=== PATIENT | male | born 1930 | race Caucasian/White ===

== ENCOUNTER 2018-04-30 05:44 | Day surgery (SDC) | payer OTHER ==
[~2018-04-30] VITALS: Ht 167.6 cm; Wt 59.4 kg
--- NOTE | ~2018-04-30 | PATH ---
[facility] [address] [place] [address] PATHOLOGY RPT PROCEDURE Name: DELPHINE AMADOR Room #: DEP [facility] M.Maycol.#: [id number] Admission: 04/30/18 Date of : 32 Discharge: 04/30/18 Report #: [id number] Path Case #: [id number] LCA Accession Number: [id number] . 01 Material submitted: . RIGHT TEMPORAL ARTERY BIOPSY STITCH PALMA PROXIMAL END . 01 Clinical history: . Vision loss . 02 Diagnosis: Artery, right temporal artery, biopsy: - Mild chronic inflammation with focal vessel wall destruction present. - Mild atherosclerosis with intimal hypertrophy. - No giant cells present. [facility]/05/03/2018 . 02 Comment: The provided history of vision loss is noted. Examination shows focal mild chronic inflammation predominantly comprised of lymphocytes and an occasional plasma cell identified within the artery wall. There are no giant cells identified. There is focal destruction of the vessel wall identified. Findings may be suggestive of arteritis. Clinical correlation is required. The case is discussed with Dr. Plummer at 11:45 AM on 05/03/18. . Co-review: Dr. Deja Morin. (IUV:pit; 05/03/2018) . 02 Electronically signed: . Shyanne Kee MD, Pathologist NPI- [id number] . 01 Gross description: . The specimen is received in formalin, labeled "Delphine Amador, right temporal artery biopsy, stitch palma proximal end". Received is a segment of pale box vascular tissue measuring 6.2 cm in length by 0.4 cm in diameter with a suture marking the proximal aspect. The slight amount of blue ink is placed at the proximal margin and the suture is removed. The proximal half is submitted in cassette A1 and the distal half is submitted in cassette A2. (CAA; 04/30/2018) QA/QA . 02 CPT . 161503 Performed at: [address] [place] [address] PATHOLOGY RPT PROCEDURE Name: DELPHINE AMADOR [facility] [id number] Admission: 04/30/18 Date of : 32 Discharge: 04/30/18 Report #: [id number] Path Case #: [id number] [address] [facility] [address], [place], [place] [id number] MD Hill Amato MD Phone: [phone] Performed at: [address] [id number] MD Shyanne Kee MD Phone: [phone]
--- NOTE | ~2018-04-30 | O ---
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 Rule out temporal arteritis. 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 Rule out temporal arteritis. PROCEDURES PERFORMED: Right temporal artery biopsy. COMPLICATIONS: None. ANESTHETIC: Local 0.25% Marcaine mixed with 1% lidocaine with epinephrine. SURGEON: Heriberto Plummer M.D. ESTIMATED BLOOD LOSS: 2 mL. PROCEDURE NOTE: With the patient in the supine position, the right temporal artery was identified and marked. The proximal part was palpated very easily. The right forehead was then prepped and draped in sterile fashion. Towels were placed around the patient, and a drape was placed over his face making a tent. Local anesthetic was placed. This was injected with 30-gauge needle. A small 2 cm incision was made. This was then used to dissect and find the artery. The artery was found without difficulty. The artery was then traced distally. Further local anesthetic was placed as I followed it up. The incision was enlarged to about 5 cm. The artery does take a slight anterior course towards the end. I followed it to where it branched. At the mid part of the artery, hemostat was placed underneath and then a vessel loop was then passed under the artery. The artery was then dissected from the surrounding tissue laterally and posteriorly. There does seem to be increased fibrosis in this area. Small branches to the artery were clipped and divided. The dissection was carried out to the anterior branch where it bifurcated at the distal part. A portion of the distal artery was harvested also. A medium clip was placed on the end of the main artery. The artery was then dissected proximally. Once the proximal part was dissected, two medium clips were placed proximally. The artery was then freed and a suture was placed on the proximal margin. The artery was then sent to the pathology in formalin. The patient tolerated procedure well. Hemostasis obtained. The subcutaneous tissue was closed with 4-0 PDS in running fashion. [address] [address] OPERATIVE REPORT Name: ADARSHSAVAGEDELPHINE W [facility]: [facility] [id number] Admission: 04/30/18 Attend Phys: Heriberto Plummer MD Discharge: 04/30/18 Date of : 32 Report #: [id number] The skin was then closed with 5-0 PDS in running fashion. The patient tolerated the procedure well. <ELECTRONICALLY SIGNED> By: Heriberto Plummer MD 05/09/18 1105 1145 1214 Heriberto Plummer MD /jacquelin
[~2018-04-30 05:44] MED LIST: APAP650 PO; CALCIUM 500 +1 EAC5 PO; OCUVITE TABLET1 EAC1 PO; PREDNISONE 20 M20 MG PO; VITAMIN B-12500 MCG PO; VITAMIN D31000 UNIT PO
[2018-04-30 08:15] VITALS: BP 156/76
[2018-04-30 11:21] VITALS: BP 156/76
== END 2018-04-30 11:00 | disposition home or self-care (01) ==
LOC: OR 05:44 → TBA 05:45 → OR 11:00
DX: M31.6 Other giant cell arteritis (principal); I70.8 Atherosclerosis of other arteries; Z87.891 Personal history of nicotine dependence; Z85.01 Personal history of malignant neoplasm of esophagus; Z79.82 Long term (current) use of aspirin; Z79.899 Other long term (current) drug therapy; Z86.12 Personal history of poliomyelitis
CPT/HCPCS: 50010; 50101; 51301; 54118; 56525; 56526

== ENCOUNTER 2018-05-03 13:00 | Inpatient (IN) | payer OTHER ==
[~2018-05-03] VITALS: Ht 167.6 cm; Wt 61.6 kg
--- NOTE | ~2018-05-03 | EKG ---
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 : 1930 Requested By: Romeo Rainey Order Number: [id number] MD: Timur Figueroa Measurements Intervals [place] Rate: 53 P: -39 GA: 147 QRS: 26 QRSD: 104 T: -8 QT: 437 QTc: 411 Interpretive Statements Sinus bradycardia Probable left atrial enlargement Lateral infarct, acute (LAD) Compared to ECG 10/17/1994 07:57:00 lateral injury pattern is now present Electronically Signed On 05-04-2018 15:42:20 CDT by Timur Figueroa [email or web address] <ELECTRONICALLY SIGNED> By: Timur Figueroa MD, [facility] 05/04/18 1542 1302 130 Timur Figueroa MD, [facility] /EPI
--- NOTE | ~2018-05-03 | EKG ---
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 : 1930 Requested By: Luiz Dyer Order Number: [id number] MD: Unruly Farnsworth Measurements Intervals [place] Rate: 54 P: -26 TN: 111 QRS: 28 QRSD: 106 T: -6 QT: 428 QTc: 406 Interpretive Statements Sinus rhythm Ventricular premature complex Borderline short TN interval Probable left atrial enlargement Lateral infarct, acute (LAD) Compared to ECG 10/17/1994 07:57:00 Ventricular premature complex(es) now present Myocardial infarct finding now present Electronically Signed On 05-04-2018 14:25:57 CDT by Unruly Farnsworth [email or web address] <ELECTRONICALLY SIGNED> By: Unruly Farnsworth MD 05/04/18 1425 1313 1313 Unruly Farnsworth MD /EPI
--- NOTE | ~2018-05-03 | EKG ---
[address] [place] [address] ELECTROCARDIOGRAM REPORT Name: DELPHINE AL Room #: 203-P ADM IN M.R.#: [id number] Admission: 05/03/18 Attend Phys: Alex Damon MD Discharge: Date of : 32 Report #: [id number] THIS REPORT FOR: //name// [facility] Test Date: 2018-05-04 Test Time: 06:25:10 Pat Name: DELPHINE AL Department: Room: 203 P Gender: M Skip Tender: LOULOU : 1930 Requested By: Luiz Dyer Order Number: [id number] MD: Timur Figueroa Measurements Intervals [place] Rate: 46 P: 57 MA: 156 QRS: 81 QRSD: 106 T: 71 QT: 460 QTc: 403 Interpretive Statements Sinus bradycardia Probable anteroseptal infarct, old Baseline wander in lead(s) V3 Compared to ECG 10/17/1994 07:57:00 PVCs are no longer present Electronically Signed On 05-04-2018 15:51:49 CDT by Timur Figueroa [email or web address] <ELECTRONICALLY SIGNED> By: Timur Figueroa MD, [facility] 05/04/18 1551 Timur Figueroa MD, [facility] /EPI
--- NOTE | ~2018-05-03 | CATHLAB ---
[facility] [address] [place] [address] INVASIVE PROCEDURE REPORT Name: DELPHINE AL Room #: 203-P [facility].#: [id number] Admission: 05/03/18 Attend Phys: Alex Damon MD Discharge: Date of : 32 Date of Service: 05/03/18 1631 Report #: [id number] THIS REPORT FOR: //name// APPROVED REPORT Study performed: 05/03/2018 13:23:40 Patient Details Patient Status: In-Patient Room #: The patient is a 87 year-old male Event Personnel Luiz Dyer Wire Mill Operator, Elvia Singh Monitor, Gila Tobin RTR, Roxane Carty Wes RN, Carloz Weems RN air force senior officer Performed Art Access - R femoral artery* Left Heart Cath w/or w/o Coronaries [id number] [facility] BMS Revasc AMI Total/Sub Single DIAG [id number] BMREVAMISG Hemostasis w/ Mynx Indication STEMI (>12 hrs to = 24 hrs), Dyspnea, Chest pain Risk Factors Hypercholesterolemia Procedure Narrative The patient was brought emergently to the Cardiac Catheterization Laboratory and was prepped and draped in a sterile manner. The Right Groin^ was infiltrated with 1% Lidocaine subcutaneous anesthesia. A PINNACLE 6FR Sheath #[id number] sheath was inserted into the RFA^. Coronary angiography was performed using coronary diagnostic catheters. The right coronary system was accessed and visualized with a JR 4 catheter. The left coronary system was accessed and visualized with a JL 4 catheter. The left ventricle was accessed and visualized with a Pigtail catheter. Left ventricular/Aortic Valve gradient assessed via catheter pullback. Left ventriculogram was performed in BLANKENSHIP projection. Pre-demployment femoral angiogram was performed . Closure device was deployed with a 6 Fr Mynx. The patient tolerated the procedure well and there were no complications associated with the procedure. There was no hematoma. Fluoro Time: 12.38 minutes Dose: DAP 7821.20 cGycm2 [address] [address] INVASIVE PROCEDURE REPORT Name: DELPHINE AL Room #: 203-P [facility]#: [id number] Admission: 05/03/18 Attend Phys: Alex Damon MD Discharge: Date of : 32 Date of Service: 05/03/18 1631 Report #: [id number] Contrast Type and Amount: Visipaque 200 ml Coronary Angiography The patient's coronary anatomy is right dominant. Diagnostic Cath Left Main Patent vessel, with no flow-limiting lesions. LAD The proximal segment is a patent vessel. There is moderate to severe diffuse disease in the mid/distal segment, 60%, recommend medical therapy. Diagonal 1 Occluded at the proximal segment. Circumflex Supplies one moderate size OM vessel. OM1 Divides into 2 branches. The superior branch has a moderate stenosis in the mid segment, 50%. Right Coronary Dominant vessel with mild disease in the mid segment, 30%. R PDA Patent vessel, no flow-limiting lesions. RPLV Patent vessel, with no flow-limiting lesions. Left Ventriculography The left ventricle is normal in size with decreased contractility. The left ventricular ejection fraction is estimated to be 40%. Left ventricular wall motion abnormalities are present. There is hypokinesis of the anterolateral and apical segments. Hemodynamics The aortic pressure is 182/66 mmHg with a mean of 114 mmHg. The left ventricular pressure is 173/6 mmHg with a mean of mmHg. The left ventricular end diastolic pressure is 43 mmHg. PCI Technique Lesion Anticoagulation was achieved with Angiomax. Patient was preloaded with Brillinta. Percutaneous coronary intervention was performed on the first diagnonal branch segment. The lesion stenosis prior to intervention was 100% with MONSTER 1 flow. A LAUNCHER 6FR EBU 3.5 #[id number] Guide Catheter was used to engage the ostium. A Luge Wire .014 x 182CM #[id number] Interventional Guidewire was used to cross the lesion. BALLOON DILATION A Balloon catheter Euphora RX 2.0 x12 #[id number] was inserted and inflated up to 8.00atm for 21seconds. Additional Inflation: 8.00atm for 23seconds. STENT DEPLOYMENT [facility] [address] [place] [address] INVASIVE PROCEDURE REPORT Name: DELPHINE AL Room #: 203-P [facility] IN M.R.#: [id number] Admission: 05/03/18 Attend Phys: Alex Damon MD Discharge: Date of : 32 Date of Service: 05/03/18 1631 Report #: [id number] A bare metal stent INTEGRITY RX 2.25 X 14 #[id number] was inserted and inflated up to 12.00atm for 15seconds. Final angiography reveals 0 % stenosis with MONSTER 3 flow. Conclusion 1. Successful insertion of a bare metal stent into the total occlusion in the first diagonal artery, with confucianism of MONSTER-3 blood flow. 2. Moderately severe diffuse disease in the mid/distal segment of the LAD, recommend medical therapy. 3. Moderate disease in the mid segment of OM1. 4. Moderate segmental LV dysfunction. 5. Recommend dual antiplatelet therapy. <ELECTRONICALLY SIGNED> By: Luiz Dyer MD 05/03/18 163 30 30 Luiz Dyer MD /INF
--- NOTE | ~2018-05-03 | 2DMMODE ---
[facility] [address] [place] [address] 2 D/M-MODE ECHOCARDIOGRAM Name: DELPHINE AL Room #: 203-P [facility] IN ..#: [id number] Admission: 05/03/18 Attend Phys: Alex Damon MD Discharge: Date of : 32 Date of Service: 05/04/18 1717 Report #: [id number] THIS REPORT FOR: //name// APPROVED REPORT Study performed: 05/04/2018 11:29:03 EXAM: Comprehensive 2D, Doppler, and color-flow Echocardiogram Patient Location: Bedside Room #: 203 Status: routine BSA: 1.72 HR: 48 bpm BP: 147/70 mmHg Rhythm: Bradycardia Other Information Study Quality: Adequate Indications MD status post PCI. 2D Dimensions RVDd: 39.34 mm LVEF(%): 76.03 (>50%) IVSd: 10.27 (7-11mm) LVOT Diam: 19.61 (18-24mm) LVDd: 45.72 mm PWd: 10.27 (7-11mm) Ascending Ao: 39.72 (22-36mm) LVDs: 25.30 (25-40mm) Aortic Root: 31.86 mm Callahan's LVEF: 76.03 % Volumes Left Atrial Volume (Systole) Single Plane 4CH: 49.94 mL Single Plane 2CH: 58.48 mL LA ESV Index: 35.00 mL/m2 Aortic Valve AoV Peak Josiah.: 1.52 m/s AO Peak Gr.: 9.21 mmHg LVOT Max P.17 mmHg LVOT Max V: 1.02 m/s MINH Vmax: 2.03 cm2 Mitral Valve E/A Ratio: 1.8 MV Decel. Time: 167.76 ms [facility] [place] [address] 2 D/M-MODE ECHOCARDIOGRAM Name: DELPHINE AL Room #: 203-[facility] IN .R.#: [id number] Admission: 05/03/18 Attend Phys: Alex Damon MD Discharge: Date of : 32 Date of Service: 05/04/18 1717 Report #: [id number] MV E Max Josiah.: 0.86 m/s MV A Josiah.: 0.49 m/s MV PHT: 48.65 ms IVRT: 110.73 ms Pulmonary Valve PV Peak Josiah.: 0.91 m/s PV Peak Gr.: 3.29 mmHg Pulmonary Vein P Vein S: 0.58 m/s P Vein A: 0.26 m/s P Vein D: 0.62 m/s P Vein A Dur.: 115.3 msec P Vein S/D Ratio: 0.94 Tricuspid Valve TR Peak Josiah.: 2.68 m/s RAP Estimate: 5.00 mmHg TR Peak Gr.: 28.81 mmHg PA Pressure: 34.00 mmHg Left Ventricle The left ventricle is normal size. Hypokinesis of the apical septum. There is normal left ventricular wall thickness. Left ventricular systolic function is mildly decreased. LVEF is 45%. Moderate diastolic dysfunction is present (pseudonormal filling). Right Ventricle The right ventricle is normal size. The right ventricular systolic function is normal. Atria Left atrium is mildly dilated. The right atrium size is normal. Aortic Valve The Aortic valve is sclerotic. Mild to moderate aortic regurgitation. There is no aortic valvular stenosis. Mitral Valve Mitral valve leaflets are mildly thickened. Mild mitral regurgitation. Tricuspid Valve The tricuspid valve is normal in structure. Mild to moderate tricuspid regurgitation. Estimated PAP is 35mmHg. Pulmonic Valve The pulmonary valve is normal in structure. Mild pulmonic [address] [address] 2 D/M-MODE ECHOCARDIOGRAM Name: DELPHINE AL Room #: 203-P [facility] IN ..#: [id number] Admission: 05/03/18 Attend Phys: Alex Damon MD Discharge: Date of : 32 Date of Service: 05/04/18 1037 Report #: [id number] regurgitation. Great Vessels The aortic root is normal in size. 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 IVC is normal in size and collapses >50% with inspiration. Pericardium There is no pericardial effusion. <Conclusion> The left ventricle is normal size. Left ventricular systolic function is mildly decreased. Moderate diastolic dysfunction is present (pseudonormal filling). The right ventricle is normal size. Left atrium is mildly dilated. Mild to moderate aortic regurgitation. Mild mitral regurgitation. Mild to moderate tricuspid regurgitation. Estimated PAP is 35mmHg. <ELECTRONICALLY SIGNED> By: Luiz Dyer MD 05/04/181716 16 16 Luiz Dyer MD /INF
--- NOTE | ~2018-05-03 | HC ---
[facility] [place] [address] CONSULTATION Name: ADARSHSAVAGEDELPHINE W Room #: 203-P [facility] IN M.R.#: [id number] Admission: 05/03/18 Attend Phys: Alex Damon MD Discharge: Date of : 32 Report #: [id number] THIS REPORT FOR: //name// CC: Adin Damon DATE OF SERVICE: 05/03/2018 INDICATION: Chest pain. HISTORY OF PRESENT ILLNESS: This is an 87-year-old gentleman presenting with substernal chest pain, nonradiating. It started around 3:00 a.m. this morning, associated with shortness of breath and diaphoresis. It had a staggering presentation. He spoke to his video control operator who referred the patient to the ER. The ECG reveals ST segment elevation in leads I and aVL. The patient had 1 episode of nausea with vomiting. There is no history of fever, cough, diarrhea or orthopnea. PAST MEDICAL HISTORY: Negative for VT. No history of hypertension or diabetes. History of bradycardia. Recently, I have a remote history of esophageal cancer status post surgery. 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 ALLERGIES: None. MEDICATIONS: Prednisone. SOCIAL HISTORY: Denies tobacco use. FAMILY HISTORY: Negative for premature CAD. REVIEW OF SYSTEMS: A full-time 10-point review of systems is performed. Only the pertinent positives and negatives are described in the HPI. PHYSICAL EXAMINATION: VITAL SIGNS: Stable. GENERAL APPEARANCE: An elderly appearing male in no acute distress. HEENT: Normocephalic. Sclerae are anicteric. Oral mucosa moist. NECK: Supple. LUNGS: CTA. CARDIAC: RRR. S1, S2 positive. ABDOMEN: Soft, nontender. EXTREMITIES: No cyanosis, 1-2+ edema. LABORATORY VALUES: ECG reveals sinus rhythm, PVC, ST elevation in leads I and aVL with reciprocal changes in leads III and aVF. [facility] [address] [place] [address] CONSULTATION Name: DELPHINE AL Room #: 203-[facility] IN [facility]#: [id number] Admission: 05/03/18 Attend Phys: Alex Damon MD Discharge: Date of : 32 Report #: [id number] ASSESSMENT AND PLAN: 1. Acute high lateral wall myocardial infarction, the patient with persistent symptoms. He will be taken emergently to the cardiac metallurgy laboratory technician. This was discussed with the patient and his who are in agreement. Treatment with aspirin, heparin and Brilinta. 2. Bradycardia, stable with no symptoms of lightheadedness. 3. Edema, we will need diuretic therapy. 4. Hypercholesterolemia, needs a lipid panel evaluated. We will start a statin therapy. <ELECTRONICALLY SIGNED> By: Luiz Dyer MD 05/04/18 0743 1335 1902 Luiz Dyer MD /nt
[2018-05-03 13:30] VITALS: BP 142/64
[2018-05-03 16:40] LABS: HEMATOCRIT 36.8 % (42.0-52.0); MCH 30.4 pg (26.0-34.0); MCHC 32.6 g/dL (28.0-37.0); MCV 93.1 fL (80.0-100.0); RBC 3.95 mil/uL (4.50-6.00); WBC 19.3 thou/uL (4.0-11.0)
[2018-05-03 16:53] LABS: INR 1.3
[2018-05-03 17:02] LABS: CALCIUM 8.7 mg/dL (8.5-10.1); CREATININE 0.7 mg/dL (0.7-1.3); POTASSIUM 4.7 mmol/L (3.5-5.1)
[2018-05-03 17:12] LABS: ALBUMIN 2.7 g/dL (3.4-5.0); TOTAL BILIRUBIN 0.5 mg/dL (<0.1-1.0); TOTAL PROTEIN 5.9 g/dL (6.4-8.2)
[2018-05-03 17:14] LABS: TROPONIN-I 24.73 ng/mL (<0.06)
[2018-05-03 21:32] VITALS: BP 142/64
[2018-05-03 23:43] VITALS: BP 142/64
[2018-05-03 23:52] VITALS: BP 156/78
[2018-05-04 03:26] LABS: HEMATOCRIT 37.8 % (42.0-52.0); HEMOGLOBIN 12.1 gm/dL (14.0-18.0); MCH 29.7 pg (26.0-34.0); MCV 92.9 fL (80.0-100.0); RBC 4.07 mil/uL (4.50-6.00); RDW 14.1 % (10.5-14.5); WBC 17.5 thou/uL (4.0-11.0)
[2018-05-04 03:43] LABS: CALCIUM 8.6 mg/dL (8.5-10.1); POTASSIUM 4.1 mmol/L (3.5-5.1)
[2018-05-04 03:52] LABS: TROPONIN-I 34.86 ng/mL (<0.06)
[2018-05-04 05:03] VITALS: BP 153/68
[2018-05-04 07:59] VITALS: BP 147/70
[2018-05-04 12:11] VITALS: BP 137/71
[2018-05-04 14:05] LABS: URINE BILIRUBIN NEGATIVE (Negative); URINE BLOOD NEGATIVE (Negative); URINE CLARITY CLEAR; URINE COLOR YELLOW; URINE GLUCOSE-RANDOM* NEGATIVE (Negative); URINE KETONES NEGATIVE (Negative); URINE LEUKOCYTES-REFLEX NEGATIVE (Negative); URINE NITRITE-REFLEX NEGATIVE (Negative); URINE PROTEIN (DIPSTICK) TRACE (Negative); URINE SPECIFIC GRAVITY >= 1.030 (1.005-1.035); URINE UROBILINOGEN 0.2 E.U./dl (0.2-1.0)
[2018-05-04 15:50] VITALS: BP 122/66
[2018-05-04 19:25] VITALS: BP 129/72
[2018-05-04 21:51] VITALS: BP 129/72
[2018-05-05 03:33] LABS: CALCIUM 8.9 mg/dL (8.5-10.1); POTASSIUM 4.5 mmol/L (3.5-5.1)
[2018-05-05 03:57] LABS: TROPONIN-I 9.42 ng/mL (<0.06)
[2018-05-05 04:37] VITALS: BP 129/72
[2018-05-05 04:48] VITALS: BP 136/63
[2018-05-05 08:06] VITALS: BP 137/67
[2018-05-05] MEDS ORDERED: COZAAR 25 MG TA25 M1 PO (09:35)
[2018-05-05] MEDS ORDERED: PEPCID20 MG PO (09:35)
[2018-05-05] MEDS ORDERED: LIPITOR40 MG PO (09:35)
[2018-05-05] MEDS ORDERED: CARVEDILOL3.125 MG PO (09:35)
[2018-05-05] MEDS ORDERED: NITROGLYCERIN0.4 MG SUBLING (09:35)
[2018-05-05] MEDS ORDERED: ASPIR 8181 MG PO (09:35)
[2018-05-05] MEDS ORDERED: PLAVIX 75 MG TA75 M1 PO (09:35)
[2018-05-05 10:00] VITALS: BP 137/67
[2018-05-05 10:09] VITALS: BP 137/67
[2018-05-05 17:25] VITALS: BP 137/67
== END 2018-05-05 10:59 | disposition home or self-care (01) | DRG 248 ==
LOC: ER 13:00 → 2N 13:23 → EROBS 13:23 → 2N 15:03 → ENTRNSPT 05-05 10:32 → EDTRNSPTSTS 05-05 10:34 → 2N 05-05 10:59
PROVIDERS: Emergency Medicine; Hospitalist; Internal Medicine Cardiovascular Disease
PROC: 4A023N7 Measurement of Cardiac Sampling and Pressure, Left Heart, Percutaneous Approach (ICD-10-PCS; principal; 2018-05-03)
PROC: B2151ZZ Fluoroscopy of Left Heart using Low Osmolar Contrast (ICD-10-PCS; principal; 2018-05-03)
PROC: 02703DZ Dilation of Coronary Artery, One Artery with Intraluminal Device, Percutaneous Approach (ICD-10-PCS; principal; 2018-05-03)
DX: I21.29 ST elevation (STEMI) myocardial infarction involving other sites (principal); E43 Unspecified severe protein-calorie malnutrition; I42.9 Cardiomyopathy, unspecified; R00.1 Bradycardia, unspecified; E78.00 Pure hypercholesterolemia, unspecified; I10 Essential (primary) hypertension; E11.9 Type 2 diabetes mellitus without complications; H54.61 Unqualified visual loss, right eye, normal vision left eye; M31.6 Other giant cell arteritis; Z85.01 Personal history of malignant neoplasm of esophagus; Z86.12 Personal history of poliomyelitis; Z79.899 Other long term (current) drug therapy; Z79.52 Long term (current) use of systemic steroids; Z79.82 Long term (current) use of aspirin; Z79.02 Long term (current) use of antithrombotics/antiplatelets; Z68.21 Body mass index [BMI] 21.0-21.9, adult
CPT/HCPCS: 10081